=== PATIENT | female | born 1985 | race Caucasian/White ===

== ENCOUNTER 2019-03-26 08:06 | Outpatient (CLI) | payer BC ==
--- NOTE | 2019-03-26 09:58 | ULT ---
RIGHT UPPER QUADRANT ULTRASOUND: INDICATIONS: Gallbladder polyp. COMPARISON: None. FINDINGS: No focal hepatic lesion. There is slight increased echogenicity of the hepatic parenchyma. There is a focus of increased echogenicity, 7 mm, along the gallbladder wall, reported as immobile by the sonog rapher during the exam. The common duct is normal in caliber. No evidence of ascites. IMPRESSION: 1. Findings most consistent with a 7 mm gallbladder polyp. Recommend followup with gastroenterology c onsultation for continued clinical surveillance. 2. Slight increased echogenicity of the hepatic parenchyma, which may relate to hepatic steatosis. C orrelate with liver function enzymes. POS: C
== END 2019-03-26 08:07 | disposition home or self-care (01) ==
LOC: SCSULT 08:06
PROVIDERS: ATTEND Family Medicine
DX: K82.4 Cholesterolosis of gallbladder (principal)
CPT/HCPCS: 76705

== ENCOUNTER 2021-11-29 09:59 | Outpatient (CLI) | payer BC | END 2021-11-29 10:00 | disposition home or self-care (01) | LOC: CTENTCT 09:59 | PROVIDERS: ATTEND Otolaryngology Plastic Surgery within the Head & Neck | DX: J32.9 Chronic sinusitis, unspecified (principal) | CPT/HCPCS: 70486 ==

== ENCOUNTER 2022-07-23 08:09 | Outpatient (CLI) | payer BC | END 2022-07-23 08:10 | disposition home or self-care (01) | LOC: ULT 08:09 | PROVIDERS: ATTEND Family Medicine | DX: K82.4 Cholesterolosis of gallbladder (principal); R16.0 Hepatomegaly, not elsewhere classified | CPT/HCPCS: 76705 ==

== ENCOUNTER 2022-08-05 07:39 | Outpatient (CLI) | payer BC | END 2022-08-05 07:40 | disposition home or self-care (01) | LOC: SCSMRI 07:39 | PROVIDERS: ATTEND Family Medicine | DX: K83.8 Other specified diseases of biliary tract (principal); K82.4 Cholesterolosis of gallbladder | CPT/HCPCS: 74183 ==